=== PATIENT | male | born 2005 | race Caucasian/White ===

== ENCOUNTER 2024-03-16 19:55 | Emergency (ER) | payer BC, SELFPAY ==
[2024-03-16 20:09] VITALS: BP 137/65; PULSE 90; RESP 16; TEMP 36.7; O2SAT 99
[2024-03-16 21:10] LABS: Strep Group A RT-PCR NOT DETECTED (Negative)
[2024-03-16 21:20] LABS: Influenza A QL RT-PCR Negative (Negative); Influenza B QL RT-PCR Negative (Negative); RSV RNA, RT-PCR Negative (Negative); SARS-CoV-2 RNA PCR Negative (Negative)
--- NOTE | 2024-03-16 21:29 | ED.URI ---
HPI - URI/Sore Throat General Chief Complaint: Upper Respiratory Infection Stated Complaint: sore throat Time Seen by Provider: 03/16/24 20:57 Source: patient Mode of arrival: ambulatory Limitations: no limitations History of Present Illness HPI Narrative: This is a 18-year-old male that presents to the emergency department for cold symptoms present over the last 6 days. Reports cough, congestion, sore throat, otalgia. Denies fevers. Related Data Allergies Allergy/AdvReac Type Severity Reaction Status Date / Time No Known Allergies Allergy Mild Unverified 03/16/24 19:56 Review of Systems Review of Systems: CONSTITUTIONAL: Denies fever ENT: Reports congestion, sore throat, and otalgia. RESPIRATORY: Reports cough All systems reviewed & are unremarkable except as noted in HPI and below PMFSH Surgical History Surgical History (Updated 03/16/24 @ 21:30 by Patrica Dale PA-C) History of myringotomy Family History Family History (Updated 04/05/11 @ 12:58 by DOCTOR UNKNOWN) Other Diabetes mellitus Social History Social History Alcohol intake: never Exam Narrative: GENERAL: Well-appearing, well-nourished, and in no acute distress. HEAD: Normocephalic, atraumatic. EYES: EOMI. ENT: Nares clear, no rhinorrhea or epistaxis. Mucous membranes moist. Oropharynx without tonsillar hypertrophy exudate or other lesions. Left TM pearly jarrett non-bulging. Right TM is bulging and erythematous NECK: Supple. No adenopathy or masses. CHEST: Clear to auscultation. No respiratory distress. No wheezes rales or rhonchi HEART: Regular rate and rhythm. No murmur heard. Normal peripheral pulses. EXTREMITIES: Normal range of motion. No edema. SKIN: Warm, dry, no rash. NEURO: No focal deficits. Alert and oriented x3. PSYCH: Normal mood and affect Course Course Emergency Course: Patient agrees with plan of care Vital Signs Vital signs: Vital Signs Temperature 98.1 F 03/16/24 20:09 Pulse Rate 90 03/16/24 20:09 Respiratory Rate 16 03/16/24 20:09 Blood Pressure 137/65 03/16/24 20:09 Pulse Oximetry 99 03/16/24 20:09 Temperature 98.1 F 03/16/24 20:09 Pulse Rate 90 03/16/24 20:09 Respiratory Rate 16 03/16/24 20:09 Blood Pressure 137/65 03/16/24 20:09 Pulse Oximetry 99 03/16/24 20:09 MDM - URI/Sore Throat MDM Narrative Medical decision making narrative: Patient presents to the ER for cold symptoms present over the last 6 days. He is afebrile and nontoxic appearing. Lungs are clear on exam. Oxygen saturation is normal on room air. COVID, influenza, RSV and strep swabs are negative. Patient does appear to have otitis media on the right. Will be started on oral antibiotics. He is to follow up with PCP. He was given warnings to return to the ER Differential Diagnosis Differential diagnosis: Likely upper respiratory infection, otitis media, sinusitis, viral infection, bronchitis, influenza and pharyngitis Lab Data Attestation: I reviewed the patient's lab results. Labs: Lab Results 03/16/24 Range/Units 20:36 Influenza A (RT-PCR) Negative (Negative) Influenza B (RT-PCR) Negative (Negative) RSV (RT-PCR) Negative (Negative) SARS-CoV-2 RNA (RT-PCR) Negative (Negative) Group A Strep (PCR) Not detected (Negative) Critical Care Time Critical Care Time Critical Care Time: No Discharge Plan Discharge Clinical Impression: Otitis media Qualifiers: Otitis media type: unspecified Chronicity: acute Qualified Code(s): H66.90 - Otitis media, unspecified, unspecified ear Patient Disposition: Home, Self-Care Condition: Stable Instructions: Antibiotic Form, Ear Infection (ED) Additional Instructions: Return to the emergency department for worsening symptoms, or any other concerns Your COVID, influenza, RSV and strep swabs were negative. You have an ear infection Remain well-hydrated, get plenty of rest. Take Tylenol or Motrin over-t
== END 2024-03-16 22:08 | disposition home or self-care (01) ==
PROVIDERS: Emergency Provider Physician Assistant
DX: H66.91 Otitis media, unspecified, right ear (principal); Z20.822 Contact with and (suspected) exposure to COVID-19
CPT/HCPCS: 87637; 87651; 99283